=== PATIENT | female | born 1995 | race Caucasian/White ===

== ENCOUNTER 2016-12-14 03:26 | Outpatient (CLI) | payer OTHER ==
[~2016-12-14] VITALS: Ht 175.3 cm; Wt 104.8 kg
[2016-12-14 03:33] VITALS: Ht 175.3 cm; Wt 104.8 kg
[2016-12-14 03:40] VITALS: BP 117/65; PULSE 89; RESP 18
[2016-12-14] MEDS ORDERED: AZIT500T2 PO (03:45)
[2016-12-14] MEDS ORDERED: PREN1TAB27 PO (03:45)
[2016-12-14] MEDS ORDERED: ALBU90AE INHALATION (03:45)
[2016-12-14] MEDS ORDERED: HYDROCODONE/APAP (5/325) TAB PO ONE (04:30)
[2016-12-14] MEDS ORDERED: HYDROCODONE/APAP (5/325) TAB PO PRN (04:30)
[2016-12-14 04:59] LABS: BASOPHILS % 0.2 % (0.0-2.0); EOSINOPHILS # 0.1 10^3/ul (0.0-0.5); EOSINOPHILS % 1.1 % (0.0-7.0); HEMATOCRIT 29.8 % (37.0-47.0); LYMPHOCYTES # 1.7 10^3/ul (0.8-2.9); LYMPHOCYTES % 21.9 % (15.0-51.0); MEAN CORPUSCULAR HEMOGLOBIN 28.2 pg (29.0-33.0); MEAN CORPUSCULAR HGB CONC 33.5 g/dl (32.0-37.0); MEAN CORPUSCULAR VOLUME 84.3 fl (82.0-101.0); MEAN PLATELET VOLUME 9.8 fl (7.4-10.4); MONOCYTE # 0.4 10^3/ul (0.3-0.9); MONOCYTES % 5.8 % (0.0-11.0); NEUTROPHIL # 5.4 10^3/ul (1.6-7.5); PLATELET COUNT 172 10^3/UL (140-440); RED BLOOD COUNT 3.54 10^6/ul (4.20-5.40); RED CELL DISTRIBUTION WIDTH 15.2 % (11.5-14.5); UNCORRECTED WBC 7.6 10^3/ul (4.8-10.8); WHITE BLOOD COUNT 7.6 10^3/ul (4.8-10.8)
--- NOTE | 2016-12-14 05:05 | RADRPT ---
PROCEDURE: OB ultrasound for biophysical profile CLINICAL INDICATION: Pelvic pain TECHNIQUE: Multiple sonographic images of the pelvis were obtained. Transabdominal views of the g ravid uterus are available for review. The images were reviewed on a PACS workstation. COMPARISON: None FINDINGS: breathing movement = 2/2 tone = 2/2 motion = 2/2 ANJEL = 2/2 ANJEL = 9.9 cm Single live intrauterine with cardiac activity of 161 bpm. position is cephal ic. The placenta is right lateral. IMPRESSION: 1. Single live intrauterine gestation. 2. Biophysical profile = 8/8. 3. ANJEL = 9.9 cm. RPTAT: HH .Diana Stephen MD, MD Date Time Electronically viewed and signed by .Diana Stephen MD, MD on 12/14/2016 05:05 .G/
[2016-12-14 05:11] LABS: ADD UMIC NO; URINE BILIRUBIN (Dip) NEGATIVE (NEGATIVE); URINE BLOOD (Dip) NEGATIVE (NEGATIVE); URINE COLOR LT. YELLOW (YELLOW); URINE GLUCOSE (Dip) NEGATIVE (NEGATIVE); URINE KETONES (Dip) NEGATIVE (NEGATIVE); URINE LEUKOCYTE ESTERASE (Dip) NEGATIVE (NEGATIVE); URINE NITRITE (Dip) NEGATIVE (NEGATIVE); URINE TOTAL PROTEIN (Dip) NEGATIVE (NEGATIVE); URINE UROBILINOGEN (Dip) 1.0 E.U./dL (0.1-1.0)
[2016-12-14 05:14] LABS: CONDITION 1
[2016-12-14 05:15] LABS: LH ANALYZER COMMENTS 1
--- NOTE | 2016-12-14 06:58 | TRIAGE ---
OB Triage Datetime Report Generated by CPN: 12/14/2016 06:58 Datetime: 12/14/2016 06:24 Pain Assessment Comments: UNABLE TO ASSESS, PT ASLEEP Datetime: 12/14/2016 06:11 Pain Assessment Comments: UNABLE TO ASSESS, PT ASLEEP Datetime: 12/14/2016 06:00 Labor Evaluation Frequency: OCCASIONAL Monitor Mode: External Duration (sec)2399: 50-70 Resting Tone [place]: Relaxed Heart Rate FHR Baseline Rate: 130 Monitor Mode: External US Variability: Moderate 6-25 bpm Accelerations: 15X15 Decelerations: None Datetime: 12/14/2016 05:50 Stage of : OB Triage Pain Assessment Pain Scale: 2 Pain Presence: Intermittent Pain Type: Burning; Sharp Pain Location: Abdomen Pain Relief Measures: Comfort Measures Datetime: 12/14/2016 05:38 Pain Assessment Pain Scale: 4 Pain Presence: Intermittent Pain Type: Cramping; Sharp Pain Location: Abdomen Pain Relief Measures: Comfort Measures Datetime: 12/14/2016 05:12 Pain Assessment Pain Scale: 8 Pain Presence: Intermittent Pain Type: Cramping; Sharp Pain Location: Abdomen Pain Relief Measures: Comfort Measures Datetime: 12/14/2016 05:00 Labor Evaluation Frequency: IRREGULAR Monitor Mode: External Duration (sec)2399: 60-80 Resting Tone [place]: Relaxed Heart Rate FHR Baseline Rate: 125 Monitor Mode: External US Variability: Moderate 6-25 bpm Accelerations: 15X15 Decelerations: None Datetime: 12/14/2016 04:56 Stage of : OB Triage Pain Assessment Pain Scale: 8 Pain Presence: Intermittent Pain Type: Cramping; Sharp Pain Location: Abdomen Pain Relief Measures: Comfort Measures Pain Assessment Comments: PT REQUESTING NORCO Datetime: 12/14/2016 04:01 Labor Evaluation Frequency: x2 Monitor Mode: External Duration (sec)2399: 70-80 Resting Tone [place]: Relaxed Heart Rate FHR Baseline Rate: 130 Monitor Mode: External US Variability: Moderate 6-25 bpm Accelerations: 15X15 Decelerations: None Datetime: 12/14/2016 03:50 Time of Arrival: 12/14/2016 03:22 EGA: 36.3 Arrived By: Wheelchair Arrived From: Home Chief Complaint: CONSTANT SHARP LOWER ABDOMINAL PAIN Movement: Present Contractions: Denies/Absent Rupture of Membranes: Denies Vaginal Bleeding: None Vaginal Discharge: Denies Recent Sexual Intercouse: Yes Abdominal Trauma: Not Applicable Patient Complaints: Other Time Provider Notified: 12/14/2016 04:06 Provider Notified: DR. HUNTER Initial Plan: EFM X2 Datetime: 12/14/2016 03:40 Stage of : OB Triage Assessment Type: Triage Maternal Assessment Level of Consciousness: Fully Conscious DTR's/Clonus: DTRs 2+; No Clonus Headache: Denies Blurred Vision: No Respiratory Effort: Unlabored; Regular Rhythm; Equal Expansion Breath Sounds, Left: Clear and Equal Breath Sounds, Right: Clear and Equal Nausea/Vomiting: Denies RUQ Epigastric Pain: Denies Lower Extremities Edema: None Degree: None Upper Extremities Edema: None Degree: None Facial Edema: None Temperature Route: Oral Fall Risk Assessment History of Falling: (0) No Secondary Diagnosis: (0) No Ambulatory Aid: (0) Bedrest/Nurse Assist IV Therapy: (0) No Gait: (0) Normal/Bedrest/Immobile Mental Status: (0) Oriented to Own Ability Fall Score: 0 Fall Risk Score Definition: No Risk: No action required Quality: Mild (Annotations: ABDOMEN SOFT ON PALPATION) Pain Assessment Pain Scale: 7 Pain Presence: Constant Pain Type: Sharp Pain Location: Abdomen Pain Relief Measures: Comfort Measures
--- NOTE | 2016-12-14 07:02 | QN ---
Documentation Comment Laborist Dr Lopez's pt 21 y.o. with an IUP at 36 weeks 3 days c/o abdominal pain R>>L and 7/10. No fevers, chills. Appetite is normal. Normal BM's. No VB or leaking. +FM. PMHx: none. PSHx: none. NKDA. OT=794/65. T= 98.7. NST: baseline 120-130 bpm with accels to 180 bpm. No decels. UC's variable q 10- 15 and less often. WBC 7.6 Hgb 10.0 U/A negative. BPP 8/8 with an ANJEL of 9.9. VTX. Pt was given one [place] and her pain completely resolved and never returned.Abdomen was soft, all quadrants of the abdomens are soft, NT, no rebound or guarding, A: IUP at 36 weeks 3 days. Abdominal pain, resolved. Plan: D/C pt home with labor precautions. NESS HUNTER MD Dec 14, 2016 07:02
== END 2016-12-14 06:55 | disposition home or self-care (01) ==
LOC: OBT 03:26 → L-D 03:27 → OBT 06:55
PROVIDERS: ATTEND Obstetrics & Gynecology
DX: O47.03 False labor before 37 completed weeks of gestation, third trimester (principal); Z3A.36 36 weeks gestation of pregnancy
CPT/HCPCS: 36415; 76818; 81003; 85025; Z7500; Z7610; G0463

== ENCOUNTER 2017-01-06 21:12 | Inpatient (IN) | payer OTHER ==
[~2017-01-06] VITALS: Ht 175.3 cm; Wt 106.5 kg
[~2017-01-06 21:12] MED LIST: ALBU90AE INHALATION; AZIT500T2 PO; PREN1TAB27 PO
[2017-01-06 21:36] VITALS: BP 119/62; PULSE 85; RESP 18
[2017-01-06] MEDS ORDERED: OXYTOCIN 30 UNITS/LR 500 ML IV PRN (22:30)
[2017-01-06] MEDS ORDERED: METHYLERGONOVINE 0.2 MG INJ IM PRN (22:30)
[2017-01-06] MEDS ORDERED: MISOPROSTOL 200 MCG TAB PR PRN (22:30)
[2017-01-06] MEDS ORDERED: CARBOPROST 250 MCG INJ IM PRN (22:30)
[2017-01-06] MEDS ORDERED: OXYTOCIN 30 UNITS/LR 500 ML IV SCH ×2 (22:30)
[2017-01-06] MEDS ORDERED: LIDOCAINE 1% (MPF) 30 ML INJ INJ PRN (22:30)
[2017-01-06] MEDS ORDERED: IBUPROFEN 600 MG TAB PO PRN (22:30)
[2017-01-06] MEDS ORDERED: BUTORPHANOL 2 MG INJ IV PRN (22:30)
--- NOTE | 2017-01-06 22:34 | TRIAGE ---
OB Triage Datetime Report Generated by CPN: 01/06/2017 22:34 Datetime: 01/06/2017 21:48 Stage of : OB Triage Monitor Mode: External Quality: Mild Pattern: Normal: <= 5 Contractions in 10 Minutes Resting Tone [place]: Relaxed Heart Rate FHR Baseline Rate: 120 Monitor Mode: External US FHR Baseline Changes: No Baseline Change Variability: Moderate 6-25 bpm Accelerations: 15X15 Decelerations: None Category: Category I Datetime: 01/06/2017 21:33 Time of Arrival: 01/06/2017 21:10 EGA: 39.5 Arrived By: Wheelchair Arrived From: Home Chief Complaint: w/ c/o ucs Movement: Present Contractions: Regular Time Contractions Began: 01/06/2017 08:00 Contractions: q3-5 Rupture of Membranes: Denies Vaginal Bleeding: Scant Vaginal Discharge: Present Recent Sexual Intercouse: Denies Abdominal Trauma: Not Applicable Patient Complaints: Contractions Initial Plan: EF,. SVE Datetime: 01/06/2017 21:23 Maternal Assessment Level of Consciousness: Fully Conscious Headache: Denies Blurred Vision: No Nausea/Vomiting: Denies RUQ Epigastric Pain: Denies Facial Edema: None Labor Evaluation Frequency: placed Monitor Mode: External Resting Tone [place]: Relaxed Monitor Mode: External US Comments: FHT 130 Pain Assessment Pain Scale: 7 Pain Presence: Intermittent Pain Type: Contraction Pain Location: Abdomen Vaginal Exam Dilatation (cms): 3.5 Effacement (%): 70 Station: -2 Exam By: E Alfie Membrane Status: Intact Amniotic Fluid Amount: None Vaginal Bleeding: Scant Cervix, Consistency: Soft Cervix, Position: Posterior Presentation 'A': Cephalic Datetime: 12/14/2016 03:50 EGA: 36.3 Datetime: 12/14/2016 03:40 Fall Risk Assessment Fall Score: 0 Fall Risk Score Definition: No Risk: No action required
[2017-01-06] MEDS: LACTATED RINGER'S 1,000 ML IV SCH (22:59)
[2017-01-06] MEDS ORDERED: LACTATED RINGER'S 1,000 ML IV PRN (23:00)
[2017-01-06 23:29] LABS: INR 0.94; PROTIME 12.6 Sec (12.2-14.2)
[2017-01-06 23:30] LABS: PARTIAL THROMBOPLASTIN TIME 26.3 Sec (25.0-35.0)
[2017-01-06 23:31] LABS: BASOPHILS % 0.2 % (0.0-2.0); EOSINOPHILS # 0.1 10^3/ul (0.0-0.5); EOSINOPHILS % 0.9 % (0.0-7.0); HEMATOCRIT 30.8 % (37.0-47.0); HEMOGLOBIN 10.2 g/dl (12.0-16.0); LYMPHOCYTES % 20.6 % (15.0-51.0); MEAN CORPUSCULAR HEMOGLOBIN 27.7 pg (29.0-33.0); MEAN CORPUSCULAR HGB CONC 33.1 g/dl (32.0-37.0); MEAN CORPUSCULAR VOLUME 83.8 fl (82.0-101.0); MEAN PLATELET VOLUME 10.6 fl (7.4-10.4); MONOCYTE # 0.7 10^3/ul (0.3-0.9); MONOCYTES % 7.3 % (0.0-11.0); NEUTROPHIL # 6.9 10^3/ul (1.6-7.5); PLATELET COUNT 170 10^3/UL (140-440); RED BLOOD COUNT 3.67 10^6/ul (4.20-5.40); RED CELL DISTRIBUTION WIDTH 15.9 % (11.5-14.5); UNCORRECTED WBC 9.8 10^3/ul (4.8-10.8); WHITE BLOOD COUNT 9.8 10^3/ul (4.8-10.8)
[2017-01-06 23:34] LABS: CONDITION 1; LH ANALYZER COMMENTS 1
[2017-01-07 00:33] LABS: ADD UMIC NO; URINE BILIRUBIN (Dip) NEGATIVE (NEGATIVE); URINE BLOOD (Dip) NEGATIVE (NEGATIVE); URINE COLOR LT. YELLOW (YELLOW); URINE GLUCOSE (Dip) NEGATIVE (NEGATIVE); URINE KETONES (Dip) NEGATIVE (NEGATIVE); URINE LEUKOCYTE ESTERASE (Dip) NEGATIVE (NEGATIVE); URINE NITRITE (Dip) NEGATIVE (NEGATIVE); URINE TOTAL PROTEIN (Dip) NEGATIVE (NEGATIVE); URINE UROBILINOGEN (Dip) 0.2 E.U./dL (0.1-1.0)
[2017-01-07 01:23] LABS: BARBITURATES NEGATIVE (NEGATIVE); BENZODIAZEPINES NEGATIVE (NEGATIVE)
[2017-01-07 01:24] LABS: CANNABINOIDS NEGATIVE (NEGATIVE)
[2017-01-07 01:33] LABS: COCAINE NEGATIVE (NEGATIVE); OPIATES NEGATIVE (NEGATIVE)
[2017-01-07] MEDS: LACTATED RINGER'S 1,000 ML IV SCH ×3 (03:15→15:24)
[2017-01-07] MEDS ORDERED: MINERAL OIL LIGHT 10 ML VIAL TOP ONE (15:00)
[2017-01-07] MEDS ORDERED: FENTAnyl 2MCG/ML-ROPIV 0.2% 100 ML ONE (15:41)
[2017-01-07] MEDS ORDERED: NALOXONE (0.4 MG/ML) INJ IV PRN (16:30)
[2017-01-07] MEDS ORDERED: FENTAnyl 2MCG/ML-ROPIV 0.2% 100 ML BAG EPI SCH (16:30)
--- NOTE | 2017-01-07 17:36 | HP ---
Date/Time of Note Date/Time of Note DATE: 01/07/17 TIME: 17:32 OB - History Hx of Present Free Text/Dictation admiited in early labor at 39 + weeks Chief Complaint: labor pains Last Menstrual Period: April 03, 2016 Estimated Due Date: Jan 08, 2017 : 4 Para: 3 Care: Good Care Ultrasounds: Normal mid trimester US Obstetrical Complications: None Medical Complications: None Past Family/Social History * Past Medical, Surgical, Family and Obstetric Histories reviewed from chart. Blood Type: O+ Rubella: immune RPR/VDRL: Negative GBS Status: Negative HBsAG: Negative OB Admission Exam Vital Signs Vital Signs Vital Signs Date Time Temp Pulse Resp B/P Pulse Ox O2 Delivery O2 Flow Rate FiO2 01/06/17 21:36 98.4 85 18 119/62 Room Air Physical Exam HEENT: WNL Heart: Rhythm Normal Lungs: Clear, Equal Abdomen: WNL Extremities: Normal Reflexes: Normal Cervical Dilatation: 3cm Effacement: 50% Station: -3 Membranes: Intact Heart Rate: 140's Accelerations: Accelerations Present Decelerations: No Decelerations Varibility: Moderate Contractions on Admission: 6-10 Minutes Apart Date/Time Contractions Began: 01/06/2016 Frequency of Contractions: q 5-6 Duration: >60 seconds Intensity: Moderate Last 72 hours Lab Results CBC & BMP 01/06/17 23:00 OB Assessment/Plan Other Assessment: term gestation labor pains Other plan: proceed with labor EBER SOARES MD Jan 07, 2017 17:36
--- NOTE | 2017-01-07 17:39 | LDN ---
Date/Time of Note Date/Time of Note DATE: 01/07/17 TIME: 17:37 Delivery Summary of a viable over intact perineum Placenta Delivered: Spontaneously, Intact & Complete Meconium: none Perineum intact?: Yes Anesthesia type: Epidural Estimated blood loss: 200 Sponge & Needle done & correct: Yes All needle counts correct: Yes Any foreign bodies felt in the: No Problems: Delivery Information Sex Infant Sex: female Apgars 1 Minute: 9 5 Minute: 9 Suctioning Nose & mouth suctioned at lalit: Yes Delee suction performed: Yes Umbilical Cord Umbilical cord with: 3 Vessels Cord presentations: nuchal cord Nuchal cord present X: 1 Cord Blood was obtained: Yes Mother & Baby Disposition Disposition Mom & Baby to Maternity; Good: Yes (mother and baby were recovered in good condtion ) Mom transferred to: Other (maternity ) Baby to NICU: No EBER SOARES MD Jan 07, 2017 17:39
[2017-01-07] MEDS: LACTATED RINGER'S 1,000 ML IV* SCH ×2 (18:38→22:29)
[2017-01-07 18:56] VITALS: BP 126/76; PULSE 76; RESP 18
[2017-01-07] MEDS ORDERED: CARBOPROST 250 MCG INJ IM PRN (19:00)
[2017-01-07] MEDS ORDERED: BENZOCAINE 20% 56 ML SPRAY TOP PRN (19:00)
[2017-01-07] MEDS ORDERED: DIBUCAINE 1% 30 GM OINT PR PRN (19:00)
[2017-01-07] MEDS ORDERED: ACETAMINOPHEN/CODEINE #3 TAB PO PRN ×2 (19:00)
[2017-01-07] MEDS ORDERED: OXYTOCIN 30 UNITS/LR 500 ML IV PRN (19:00)
[2017-01-07] MEDS ORDERED: ZOLPIDEM 5 MG TAB PO PRN (19:00)
[2017-01-07] MEDS ORDERED: WITCH HAZEL/GLYCERIN PAD PR PRN (19:00)
[2017-01-07] MEDS ORDERED: METHYLERGONOVINE 0.2 MG INJ IM PRN (19:00)
[2017-01-07] MEDS ORDERED: LANOLIN 7 GM TUBE TOP PRN (19:00)
[2017-01-07] MEDS ORDERED: MISOPROSTOL 200 MCG TAB PR PRN (19:00)
[2017-01-07 20:00] VITALS: BP 108/62; PULSE 108; RESP 19
[2017-01-07] MEDS: SENNA/DOCUSATE NA (8.6MG/50MG) TAB PO SCH (21:30)
[2017-01-07] MEDS: MAGNESIUM HYDROXIDE 30ML CUP PO SCH (21:30)
[2017-01-07 23:30] VITALS: BP 104/57; PULSE 82; RESP 19
[2017-01-08] MEDS: IBUPROFEN 600 MG TAB PO SCH ×4 (00:01→18:16)
[2017-01-08] MEDS: CEPHALEXIN 500 MG CAP PO SCH ×4 (00:01→18:17)
[2017-01-08 04:45] VITALS: BP 113/62; PULSE 63; RESP 19
[2017-01-08 07:45] VITALS: BP 99/57; PULSE 63; RESP 17
[2017-01-08 08:30] LABS: BASOPHILS % 0.2 % (0.0-2.0); EOSINOPHILS # 0.1 10^3/ul (0.0-0.5); EOSINOPHILS % 0.6 % (0.0-7.0); HEMATOCRIT 32.1 % (37.0-47.0); HEMOGLOBIN 10.7 g/dl (12.0-16.0); LYMPHOCYTES # 1.7 10^3/ul (0.8-2.9); LYMPHOCYTES % 15.1 % (15.0-51.0); MEAN CORPUSCULAR HGB CONC 33.4 g/dl (32.0-37.0); MEAN CORPUSCULAR VOLUME 83.9 fl (82.0-101.0); MEAN PLATELET VOLUME 10.4 fl (7.4-10.4); MONOCYTE # 0.8 10^3/ul (0.3-0.9); MONOCYTES % 7.2 % (0.0-11.0); NEUTROPHIL # 8.5 10^3/ul (1.6-7.5); NEUTROPHILS % 76.9 % (39.0-77.0); PLATELET COUNT 154 10^3/UL (140-440); RED BLOOD COUNT 3.83 10^6/ul (4.20-5.40); UNCORRECTED WBC 11.1 10^3/ul (4.8-10.8); WHITE BLOOD COUNT 11.1 10^3/ul (4.8-10.8)
[2017-01-08] MEDS: MAGNESIUM HYDROXIDE 30ML CUP PO SCH ×2 (08:56→21:35)
[2017-01-08] MEDS: SENNA/DOCUSATE NA (8.6MG/50MG) TAB PO SCH ×2 (08:57→21:35)
[2017-01-08 09:02] LABS: CONDITION 1; LH ANALYZER COMMENTS 1
[2017-01-08] MEDS: LACTATED RINGER'S 1,000 ML IV* SCH ×2 (10:38→18:38)
[2017-01-08 11:45] VITALS: BP 117/59; PULSE 132; RESP 17
[2017-01-08 15:50] VITALS: BP 106/59; PULSE 77; RESP 17
--- NOTE | 2017-01-08 17:38 | DS ---
Date/Time of Note Date/Time of Note home next day DATE: 01/08/17 TIME: 17:37 Obstetrical Discharge Record Final Diagnosis Final Diagnosis: Term delivered Other Final Diagnosis S/P vaginal delivery Vaginal Delivery Obstetrical Delivery: Spontaneous Complications Augmentation: Yes Condition on Discharge Physical Assessment Last Vitals: see nurses notes Voiding: Yes Bowel Movement: Yes Breast: Soft, non-tender, Filling Fundus: Firm Abdomen and Incision: soft BS + Episiotomy: NA Calf Tenderness: No Patient Condition: Good EBER SOARES MD Jan 08, 2017 17:38
--- NOTE | 2017-01-08 17:40 | PD.PPDC ---
[employer] Discharge Instruction Provider Information Physician Information 27 y/o female had vaginal delivery Diagnosis Final Diagnosis: S/P vaginal delivery Condition Patient Condition: Good Diet Diet: Resume Regular Diet Activity/Restrictions Activity: Normal Activity May Shower Restrictions: Nothing in the Vagina Return to Work or School: Feb 22, 2017 Follow-up Follow-up with Physician: 4, Week/Weeks Return to clinic for OB Instructions: Breast Tenderness Depression EBER SOARES MD Jan 08, 2017 17:40
[2017-01-08] MEDS ORDERED: IBUP-1542 PO (17:41)
[2017-01-08 20:30] VITALS: BP 116/58; PULSE 98; RESP 19
[2017-01-09] MEDS: CEPHALEXIN 500 MG CAP PO SCH ×4 (00:36→17:43)
[2017-01-09] MEDS: IBUPROFEN 600 MG TAB PO SCH ×4 (00:36→17:43)
[2017-01-09] MEDS: LACTATED RINGER'S 1,000 ML IV* SCH (02:38)
[2017-01-09 04:35] VITALS: BP 108/56; PULSE 63; RESP 19
[2017-01-09] MEDS ORDERED: DIPHTH/TET/ACEL PERTUSS (ADULT) 0.5 ML VIAL IM* ONE (09:00)
[2017-01-09] MEDS ORDERED: MEASLES,MUMPS,RUBELLA VACCINE INJ SC* ONE (09:00)
[2017-01-09] MEDS ORDERED: VARICELLA VACCINE LIVE/PF 1,350 UNIT/0.5 ML ML SC* ONE (09:00)
[2017-01-09 09:15] VITALS: BP 117/62; PULSE 67; RESP 17
[2017-01-09] MEDS: SENNA/DOCUSATE NA (8.6MG/50MG) TAB PO SCH (09:17)
[2017-01-09] MEDS: MAGNESIUM HYDROXIDE 30ML CUP PO SCH (09:17)
[2017-01-09 16:15] VITALS: BP 110/61; PULSE 67; RESP 18
== END 2017-01-09 18:30 | disposition home or self-care (01) | DRG 775 ==
LOC: OBT 21:12 → L-D 21:13 → OBT 22:25 → L-D 01-07 00:12 → PP1 01-07 18:41
PROVIDERS: ADMIT Obstetrics & Gynecology; ATTEND Obstetrics & Gynecology
PROC: 10E0XZZ Delivery of Products of Conception, External Approach (ICD-10-PCS; principal; 2017-01-07)
PROC: 3E00X4Z Introduction of Serum, Toxoid and Vaccine into Skin and Mucous Membranes, External Approach (ICD-10-PCS; 2017-01-09)
DX: O69.81X0 Labor and delivery complicated by cord around neck, without compression, not applicable or unspecified (principal); E66.9 Obesity, unspecified; O99.214 Obesity complicating childbirth; Z23 Encounter for immunization; Z68.34 Body mass index [BMI] 34.0-34.9, adult; Z3A.39 39 weeks gestation of pregnancy; Z37.0 Single live birth
CPT/HCPCS: 36415; 62319; 80307; 81003; 85025; 85610; 85730; 86592; 86900; 86901; 87340; 90715; 90716; 96360; G0463; J2590; J3010; J7120

== ENCOUNTER 2018-07-25 11:41 | Inpatient (IN) | END 2018-07-27 16:29 | disposition home or self-care (01) | DRG 775 ==

== ENCOUNTER 2019-07-06 18:04 | Inpatient (IN) | payer OTHER ==
[~2019-07-06] VITALS: Ht 175.3 cm; Wt 118.1 kg
[~2019-07-06 18:04] MED LIST changes: -ALBU90AE INHALATION; -AZIT500T2 PO
[2019-07-06 18:39] VITALS: Ht 175.3 cm; Wt 118.1 kg
[2019-07-06 18:40] VITALS: BP 129/59; PULSE 83; RESP 18
[2019-07-06] MEDS ORDERED: ACETAMINOPHEN 500 MG TAB PO STA (20:16)
[2019-07-06] MEDS: SOD CHLORIDE 0.9% 1,000 ML IV SCH (20:40)
[2019-07-06] MEDS: CEFTRIAXONE 1 GM/50 ML (PMX) 50 ML IVPB SCH (21:01)
[2019-07-06] MEDS: BETAMET NA PHOS/AC(6 MG/ML) 2 ML INJ SYG IM SCH (21:01)
[2019-07-07] MEDS: SOD CHLORIDE 0.9% 1,000 ML IV SCH ×2 (05:28→17:16)
[2019-07-07] MEDS: CEFTRIAXONE 1 GM/50 ML (PMX) 50 ML IVPB SCH (21:26)
[2019-07-07] MEDS: BETAMET NA PHOS/AC(6 MG/ML) 2 ML INJ SYG IM SCH (21:26)
[2019-07-08] MEDS: SOD CHLORIDE 0.9% 1,000 ML IV SCH ×3 (00:25→09:24)
== END 2019-07-08 11:50 | disposition home or self-care (01) | DRG 832 ==
LOC: L-D 18:04 → OBT 18:04 → L-D 20:00
PROVIDERS: ADMIT Obstetrics & Gynecology; ATTEND Obstetrics & Gynecology
DX: O23.03 Infections of kidney in pregnancy, third trimester (principal); O26.873 Cervical shortening, third trimester; N12 Tubulo-interstitial nephritis, not specified as acute or chronic; Z3A.31 31 weeks gestation of pregnancy
CPT/HCPCS: 76817; 76818; 81001; 87086; G0463; J0696; J0702; J7030

== ENCOUNTER 2019-09-17 01:15 | Inpatient (IN) | payer OTHER ==
[~2019-09-17] VITALS: Ht 175.3 cm; Wt 125.4 kg
[2019-09-17] MEDS ORDERED: LACTATED RINGER'S 1,000 ML IV SCH (01:22)
[2019-09-17] MEDS ORDERED: LACTATED RINGER'S 1,000 ML IV PRN (01:22)
[2019-09-17] MEDS ORDERED: MINERAL OIL LIGHT 10 ML VIAL TOP PRN (01:30)
[2019-09-17] MEDS ORDERED: OXYTOCIN 30 UNITS/LR 500 ML IV PRN ×2 (01:30→06:30)
[2019-09-17] MEDS ORDERED: BUTORPHANOL 2 MG INJ IV PRN (01:30)
[2019-09-17] MEDS ORDERED: CARBOPROST 250 MCG INJ IM PRN ×2 (01:30→06:30)
[2019-09-17] MEDS ORDERED: LIDOCAINE 1% (MPF) 30 ML INJ INJ PRN (01:30)
[2019-09-17] MEDS ORDERED: METHYLERGONOVINE 0.2 MG INJ IM PRN ×2 (01:30→06:30)
[2019-09-17] MEDS ORDERED: AMPICILLIN 2 GM/NS (PMX) 100 ML IV ONE (01:30)
[2019-09-17] MEDS ORDERED: OXYTOCIN 30 UNITS/LR 500 ML IV SCH ×2 (01:30)
[2019-09-17] MEDS ORDERED: IBUPROFEN 600 MG TAB PO PRN (01:30)
[2019-09-17] MEDS ORDERED: MISOPROSTOL 200 MCG TAB PR PRN ×2 (01:30→06:30)
[2019-09-17 02:27] VITALS: Ht 175.3 cm; Wt 125.4 kg
[2019-09-17] MEDS ORDERED: FENTAnyl 2MCG/ML-ROPIV 0.2% 100 ML ONE (03:25)
[2019-09-17] MEDS ORDERED: FENTAnyl 2MCG/ML-ROPIV 0.2% 100 ML BAG EPI SCH (04:00)
[2019-09-17] MEDS ORDERED: ONDANSETRON 4 MG INJ IV PRN (04:00)
[2019-09-17] MEDS ORDERED: NALOXONE (0.4 MG/ML) INJ IV PRN (04:00)
[2019-09-17] MEDS ORDERED: AMPICILLIN 1 GM/NS (PMX) 50 ML IV SCH (05:30)
[2019-09-17] MEDS: OXYTOCIN 30 UNITS/LR 500 ML IV SCH ×2 (06:29→13:16)
[2019-09-17] MEDS ORDERED: LACTATED RINGER'S 1,000 ML IV* SCH (06:29)
[2019-09-17] MEDS ORDERED: BENZOCAINE 20% 56 ML SPRAY TOP PRN (06:30)
[2019-09-17] MEDS ORDERED: HYDROCODONE/APAP (5/325) TAB PO PRN (06:30)
[2019-09-17 08:30] VITALS: BP 116/55; PULSE 65; RESP 18
[2019-09-17] MEDS: IBUPROFEN 600 MG TAB PO SCH ×2 (11:35→17:13)
[2019-09-17 16:00] VITALS: BP 136/81; PULSE 79; RESP 18
[2019-09-17] MEDS: LANOLIN HPA 1 PKT TOP PRN (17:13)
[2019-09-17 20:00] VITALS: BP 106/60; PULSE 77; RESP 20
[2019-09-18] VITALS: BP 109/59; PULSE 71; RESP 19
[2019-09-18 04:00] VITALS: BP 96/53; PULSE 73; RESP 20
[2019-09-18] MEDS: IBUPROFEN 600 MG TAB PO SCH ×5 (06:16→23:32)
[2019-09-18 08:00] VITALS: BP 106/57; PULSE 68
[2019-09-18] MEDS: FERROUS SULFATE (EC) 325 MG TAB PO SCH (09:53)
[2019-09-18] MEDS: ASCORBIC ACID 500 MG TAB PO SCH (09:54)
[2019-09-18 16:00] VITALS: BP 108/59; PULSE 73; RESP 20
[2019-09-18 20:00] VITALS: BP 121/58; PULSE 83; RESP 18
[2019-09-18] MEDS: LANOLIN HPA 1 PKT TOP PRN (22:12)
[2019-09-19 04:00] VITALS: BP 97/60; PULSE 67; RESP 18
[2019-09-19] MEDS: IBUPROFEN 600 MG TAB PO SCH ×2 (05:55→12:00)
[2019-09-19 08:00] VITALS: BP 102/56; PULSE 66; RESP 18
[2019-09-19] MEDS ORDERED: DIPHTH/TET/ACEL PERTUSS (ADULT) 0.5 ML VIAL IM* ONE (09:00)
[2019-09-19] MEDS ORDERED: SENNA/DOCUSATE NA (8.6MG/50MG) TAB PO SCH (09:00)
[2019-09-19] MEDS: ASCORBIC ACID 500 MG TAB PO SCH (10:27)
[2019-09-19] MEDS: FERROUS SULFATE (EC) 325 MG TAB PO SCH (10:27)
== END 2019-09-19 16:06 | disposition home or self-care (01) | DRG 806 ==
LOC: L-D 01:15 → OBT 01:15 → L-D 01:21 → PP1 08:17
PROVIDERS: ADMIT Obstetrics & Gynecology; ATTEND Obstetrics & Gynecology
PROC: 10E0XZZ Delivery of Products of Conception, External Approach (ICD-10-PCS; principal; 2019-09-17)
PROC: 0UQGXZZ Repair Vagina, External Approach (ICD-10-PCS; 2019-09-17)
DX: O48.0 Post-term pregnancy (principal); O71.4 Obstetric high vaginal laceration alone; Z37.0 Single live birth; Z3A.40 40 weeks gestation of pregnancy
CPT/HCPCS: 62322; 80307; 85025; 85610; 85730; 86592; 86850; 86900; 86901; 88307; 90715; G0463; J0290; J2590; J3010; J7120